=== PATIENT | male | born 1950 | race Two or more races ===

== ENCOUNTER 2019-05-03 15:21 | Emergency (ER) | payer OTHER, MEDICAID ==
[~2019-05-03] VITALS: Ht 175.3 cm; Wt 79.4 kg
[~2019-05-03 15:21] MED LIST: ASP81EC PO; CIPR500T4 PO; GLIP5TAB12 PO; LISI10TA6 PO; METF-370 PO
[2019-05-03] MEDS ORDERED: ACETAMINOPHEN 325 MG TAB PO ONE (15:45)
[2019-05-03 15:50] LABS: Basophils # (auto) 0.1 uL; Basophils % (auto) 0.7 % (0.0-2.0); Eosinophils # (auto) 0 uL; Hematocrit 38.7 % (41.0-53.0); Hemoglobin 13.5 g/dL (13.5-17.5); Lymphocytes # (auto) 0.6 uL; Lymphocytes % (auto) 6.5 % (10.0-50.0); Mean Corpuscular Hemoglobin 32.7 pg (28.0-32.0); Mean Corpuscular Hgb Conc. 34.9 g/dL (32.0-36.0); Mean Corpuscular Volume 93.6 fL (80.0-100.0); Monocytes # (auto) 0.7 uL; Monocytes % (auto) 6.9 % (0.0-12.0); Neutrophils # (auto) 8.1 uL; Neutrophils % (auto) 85.9 % (37.0-80.0); Platelet Count (auto) 129 10^3/uL (140-450); Red Blood Cells 4.13 10^6/uL (4.5-5.90); Red Cell Distribution Width 13.2 % (11.8-14.3); White Blood Cell 9.4 10^3/uL (4.4-10.8)
[2019-05-03 15:54] VITALS: BP 156/85
[2019-05-03 16:12] LABS: Alanine Aminotransferase 25 U/L (16-61); Albumin 3.6 g/dL (3.4-5.0); Anion Gap 7 (5-15); Aspartate Aminotransferase 14 U/L (15-37); BUN/Creatinine Ratio 16.4; Blood Urea Nitrogen 19 mg/dL (7-18); Calcium 8.6 mg/dL (8.5-10.1); Carbon Dioxide 24 mmol/L (21-32); Chloride 103 mmol/L (98-107); GFR African American 81 mL/min; GFR Non-African American 67 mL/min; Glucose 281 mg/dL (74-106); Potassium 4.8 mmol/L (3.5-5.1); Sodium 134 mmol/L (136-145)
[2019-05-03 16:17] LABS: Alkaline Phosphatase 94 U/L (45-117); Bilirubin, Total 0.6 mg/dL (0.2-1.0); Total Protein 7.5 g/dL (6.4-8.2)
[2019-05-03 16:36] LABS: Urine Bacteria NONE SEEN /hpf (None Seen); Urine Blood TRACE /uL (Negative); Urine Specific Gravity 1.014 (1.001-1.035); Urine WBC <1 /hpf (0 - 3)
== END 2019-05-03 17:27 | disposition left against medical advice (07) ==
LOC: EDBD 15:21 → ER 15:23
DX: R53.1 Weakness (principal); Z53.21 Procedure and treatment not carried out due to patient leaving prior to being seen by health care provider
CPT/HCPCS: 36415; 80053; 81001; 84484; 85025